=== PATIENT | female | born 1955 | race Caucasian/White ===

== ENCOUNTER 2016-12-27 02:45 | Emergency (ER) | payer SELFPAY ==
[2016-12-27] MEDS ORDERED: diphenhydrAMINE 25 MG Cap PO ONE (03:05)
[2016-12-27] MEDS ORDERED: predniSONE 20 MG Tab PO ONE (03:05)
--- NOTE | 2016-12-27 03:05 | EDM.PDOC ---
ED HPI GENERAL MEDICAL PROBLEM - General Chief Complaint: General Stated Complaint: mucous stuck in throat Time Seen by Provider: 12/27/16 03:05 Source of Information: Reports: Patient History Limitations: Reports: No limitations - History of Present Illness INITIAL COMMENTS - FREE TEXT/NARRATIVE: PT STATES SHE WOKE UP FROM SLEEP AND FELT PHLEM IN THROAT. WORRIED THAT SHE MIGHT CHOKE SO PRESENTED TO ER. HAS HAD URI WITH NASAL CONGESTION AND COUGH. DAUGHTER STATES MOTHER SNORES VERY LOUDLY. DENIES SOB, CP, FEVER, SIMILAR SYMPTOMS IN PAST. Onset: today Duration: Getting worse Quality: Reports: Other (FEELS LIKE SOMETHING IN THROAT) Severity: mild Improves with: Reports: None Worsens with: Reports: Other (SWALLOWING) Associated Symptoms: Reports: no other symptoms - Related Data Allergies Allergy/AdvReac Type Severity Reaction Status Date / Time No Known Drug Allergies Allergy none Verified 12/27/16 03:10 Home Meds: Home Meds Isomethepten/Caf/Acetaminophen [[id number]] 2 cap PO QID PRN MDD 4 tabs 12/27/16 [History] ED ROS GENERAL - Review of Systems Review Of Systems: ROS reveals no pertinent complaints other than HPI. Constitutional: Reports: no symptoms HEENT: Reports: Throat pain Respiratory: Reports: Cough Cardiovascular: Reports: No symptoms Endocrine: Reports: no symptoms GI/Abdominal: Reports: No symptoms : Reports: no symptoms Musculoskeletal: Reports: no symptoms Skin: Reports: no symptoms Neurological: Reports: No Symptoms Psychiatric: Reports: No symptoms Hematologic/Lymphatic: Reports: no symptoms Immunologic: Reports: no symptoms ED EXAM, GENERAL - Physical Exam Exam: See Below Exam Limited By: No limitations General Appearance: alert, WD/WN, no apparent distress Eye Exam: bilateral eye: normal inspection Nose: normal inspection, normal mucosa, no blood Throat/Mouth: Normal lips, No airway compromise, Other (ENLARGED UVULA WITHOUT ERYTHEMA) Neck: normal inspection, supple, non-tender. No: lymphadenopathy (L), lymphadenopathy (R) Respiratory/Chest: no respiratory distress, lungs clear, normal breath sounds, no accessory muscle use Cardiovascular: regular rate, rhythm, no murmur GI/Abdominal: normal bowel sounds, soft, non tender Extremities: normal inspection, no pedal edema Neurological: alert, oriented, normal cognition Psychiatric: normal affect, normal mood Skin Exam: Warm, Dry, Intact, Normal color, No rash Lymphatic: no adenopathy Course - Vital Signs Last Recorded V/S: Last Vital Signs Temp 98.8 F 12/27/16 03:26 Pulse 85 12/27/16 03:26 Resp 18 12/27/16 03:26 BP 143/87 H 12/27/16 03:26 Pulse Ox 96 12/27/16 03:26 - Orders/Labs/Meds Meds: Medications Discontinued Medications Generic Name Dose Route Start Last Admin Trade Name Pietro PRN Reason Stop Dose Admin Diphenhydramine HCl 25 mg 12/27/16 03:05 12/27/16 03:25 Benadryl PO 12/27/16 03:06 25 mg ONETIME ONE Administration Prednisone 40 mg 12/27/16 03:05 12/27/16 03:24 Prednisone PO 12/27/16 03:06 40 mg ONETIME ONE Administration - Re-Assessments/Exams Free Text/Narrative Re-Assessment/Exam: 12/27/16 03:37 PT AFEBRILE, NONTOXIC APPEARING, FEELING BETTER. SUSPECT UVULA ENLARGEMENT SECONDARY TO URI SYMPTOMS AND HEAVY SNORING. WILL SUGGEST SLEEP STUDY AND F/U WITH PCP 12/27/16 03:40 Departure - Departure Time of Disposition: 03:41 Disposition: Home, Self-Care 01 Condition: good Clinical Impression: Uvular swelling URI (upper respiratory infection) Qualifiers: URI type: unspecified URI Qualified Code(s): J06.9 - Acute upper respiratory infection, unspecified Instructions: Upper Respiratory Infection, Adult, [id number] Forms: ED Department Discharge Additional Instructions: FOLLOW UP WITH YOUR PRIMARY PHYSICIAN. RETURN TO ER SOONER IF SYMPTOMS CONTINUE - Assessment/Plan Assessment:: UVULA ENLARGEMENT SECONDARY TO URI / SNORING Plan: F/U WITH PCP
[2016-12-27 03:32] VITALS: BP 143/87
== END 2016-12-27 04:00 | disposition home or self-care (01) ==
LOC: KA.ED 02:45
DX: J06.9 Acute upper respiratory infection, unspecified (principal)
CPT/HCPCS: 99283; A9270

== ENCOUNTER 2022-08-10 13:33 | Emergency (ER) | payer MEDICARE ==
[2022-08-10 13:57] VITALS: BP 123/78; PULSE 99
== END 2022-08-10 15:05 | disposition home or self-care (01) ==
LOC: KA.ED 13:33
DX: S52.532A Colles' fracture of left radius, initial encounter for closed fracture (principal); W00.0XXA Fall on same level due to ice and snow, initial encounter
CPT/HCPCS: 29125; 73110-LT; 99283-25